=== PATIENT | female | born 1990 | race Caucasian/White ===

== ENCOUNTER 2021-05-05 17:20 | Emergency (ER) | payer BC, SELFPAY ==
--- NOTE | ~2021-05-05 | XR_ITS ---
XR foot RT min 3V DATE: 05/05/2021 17:41 INDICATION: Right first metatarsophalangeal area pain for 3 days. No injury. TECHNIQUE: 4 views COMPARISON: None FINDINGS: There is mild osteoarthritis at the first metatarsophalangeal joint. Mild plantar calcaneal enthesopathy, without erosive change or periostitis. No fracture or dislocation, periosteal reaction or bone destruction. IMPRESSION: Mild osteoarthritis at first metatarsophalangeal joint Mild plantar calcaneal enthesopathy Reviewed, dictated and finalized at location [facility] [employer]
--- NOTE | 2021-05-05 17:27 | ED.LOWEXIN ---
HPI - Extremity Injury (Lower) General Chief Complaint: Extremity Injury, Lower Stated Complaint: Foot pain Time Seen by Provider: 05/05/21 17:30 Source: patient and RN notes reviewed Mode of arrival: ambulatory Limitations: no limitations History of Present Illness HPI Narrative: 31-year-old female presents to the [facility] with complaints of right great toe pain on the plantar aspect for 2 days. Yesterday was resting it. Denies any injuries. Swelling and tenderness noted at the MTP joint. No redness, signs of infection or bruising noted MD complaint: foot injury Related Data Allergies Allergy/AdvReac Type Severity Reaction Status Date / Time No Known Allergies Allergy Verified 05/05/21 17:30 Review of Systems Review of Systems: All systems reviewed & are unremarkable except as noted in HPI and below Constitutional: Constitutional: Reports no additional constitutional complaints, Denies chills and Denies fever(s) Eyes: Eyes: Reports no additional eye complaints ENT: Reports system reviewed and no additional complaints, except as documented Cardiovascular: Cardiovascular: Reports no additional cardiovascular complaints and Denies chest pain Respiratory: Respiratory: Reports no additional respiratory complaints, Denies cough and Denies dyspnea Gastrointestinal: Gastrointestinal: Reports no additional gastrointestinal complaints, Denies abdominal pain, Denies nausea and Denies vomiting Musculoskeletal: Musculoskeletal: Reports as per HPI, Reports arthralgias (Feeling right great toe) and Reports joint swelling (Right great toe base) Integumentary/Breasts: Skin/Breast: Reports system reviewed and no additional complaints, except as docu Neurologic: Reports system reviewed and no additional complaints, except as documented Psychiatric: Psychiatric: Reports no additional psychiatric complaints Allergic/Immunologic: Allergic/Immunologic: Reports no additional allergic/immunologic complaints PMFSH Past Medical History Medical History No significant medical problems Surgical History Surgical History (Updated 05/06/21 @ 09:47 by Mariposa Archer) No significant past surgical history Comments At the time of my signature, I reviewed and agree with the nursing past medical, surgical, social, and family history. There is no relevant family history pertinent to the patient complaint. Exam Const: General: healthy appearing, no acute distress and alert Nutritional Appearance: well nourished Orientation/consciousness: patient oriented x3 Limitations: no limitations HENMT: Head: normal to inspection Ears: external ears normal Eyes: Pupils: Equal, round and reactive pupils present Neck: Neck: normal visual inspection, no lymphadenopathy and no meningeal signs Chest: Chest palpation & inspection: normal inspection of the chest Resp: Effort & Inspection: normal respiratory effort Auscultation: clear to auscultation bilaterally Cardio: Rate: regular rate Rhythm: regular rhythm Back/Spine/Pelvis: Back: no CVA tenderness Skin: General skin exam: normal color Rashes: no rashes Wounds: no wounds Neuro: General: patient oriented x3, moves all extremities, no meningeal signs and no focal motor deficits Cranial nerves: Yes Equal, round and reactive pupils present Speech: normal speech Gait exam (Neuro): Normal gait present Extrem: General: capillary refill normal and normal exam except as noted Right lower extremity: foot Details: normal capillary refill, tenderness Location: of the plantar foot and of the great toe and abnormal ROM of toe Details: pain with active ROM Location: of the great toe and pain with passive ROM Location: of the great toe Ankle/foot/toe images: 1. Swelling and tenderness on palpation and with walking noted. No bruising or signs of infection. Psych: Appearance: grossly normal and well kempt Mental Status: mental status grossly nor
[2021-05-05 17:29] VITALS: BP 143/76; PULSE 94; RESP 16; TEMP 36.9; O2SAT 99
== END 2021-05-05 18:10 | disposition home or self-care (01) ==
PROVIDERS: Emergency Provider Nurse Practitioner; PCP Nurse Practitioner Family
DX: M19.071 Primary osteoarthritis, right ankle and foot (principal)
CPT/HCPCS: 73630; 99203; G0463

== ENCOUNTER 2021-08-19 11:48 | Emergency (ER) | payer BC, SELFPAY ==
[2021-08-19 11:55] VITALS: BP 133/86; PULSE 97; RESP 16; TEMP 36.6; O2SAT 100
--- NOTE | 2021-08-19 11:56 | ED.EAR ---
HPI - Ear Problem General Chief complaint: Ear Stated complaint: PAIN/SWELLING BEHIND EAR/EAR CLOGGED Time Seen by Provider: 08/19/21 11:56 Source: patient Mode of arrival: ambulatory Limitations: no limitations History of Present Illness HPI Narrative: 31-year-old female presented for complaint of left ear pain and swelling for 4 days. She states the pain is worse behind the ear and wraps to the cheekbone. Pain is worse when turning head to the left. States it feels like the sensation of 'mouth watering.' Rates pain 2/10 at rest. She states that pain and swelling improved yesterday after taking ibuprofen but returned again today. She denies pain with chewing, sinus pressure congestion, tinnitus or dizziness, decreased hearing, fevers or chills. MD Complaint: ear pain Related Data Allergies Allergy/AdvReac Type Severity Reaction Status Date / Time No Known Allergies Allergy Verified 05/05/21 17:30 Review of Systems Review of Systems: CONSTITUTIONAL: Denies malaise, chills, or fever. EYES: Denies visual changes, redness, or discharge. ENT: Denies rhinorrhea, congestion, sinus pain, and sore throat. Reports ear pain CARDIOVASCULAR: Denies chest pain, palpitations, or edema. RESPIRATORY: Denies cough or dyspnea. GASTROINTESTINAL: Denies abdominal pain, nausea, vomiting, diarrhea SKIN: Denies rash or itching. MUSCULOSKELETAL: Denies myalgia. NEUROLOGIC: Denies headache. All systems reviewed & are unremarkable except as noted in HPI and below PMFSH Past Medical History Medical History No significant medical problems Surgical History Surgical History No significant past surgical history Comments At time of signature, agree with nursing past medical, surgical, social and family history. There is no relevant family history pertinent to the presenting complaint Exam Narrative: GENERAL: Well-appearing HEAD: Normocephalic EYES: conjunctivae clear ENT: Nares clear. Mucous membranes moist. Left parotid mild swelling and tenderness with light palpation, no erythema. TMs pearly ventura with normal light reflex and normal canals bilaterally; no tragal tenderness. Oropharynx not erythematous without lesions. Tonsils absent, no drooling, no hoarseness, no trismus, uvula midline. No signs of dental abscess or gum swelling. NECK: Supple. CHEST: Clear to auscultation, breath sounds equal. No wheezing, rhonchi, rales, or stridor. HEART: Regular rate and rhythm. No murmur heard. SKIN: Warm, dry, no rash. NEURO: Alert and oriented x3. PSYCH: Normal mood and affect Course Course Emergency Course: Patient is aware of diagnosis, understands and agrees to treatment plan. Anticipatory guidance given. Patient agrees to follow-up as directed and is aware of reasons to seek care at the emergency department. Portions of this record may have been created with voice recognition software Level of Care: Express Care Visit Vital Signs Vital signs: Reviewed Medical Decision Making MDM Narrative Medical decision making narrative: Exam findings c/w sialoadenitis. She is advised on supportive care and the abx is provided should sx worsen significantly before she can be seen by PCP. States she could not get in to see them for one month. patient is non-toxic appearing and is in no distress. Patient is appropriate for outpatient treatment and follow-up. Differential Diagnosis Differential Diagnosis: sinusitis, rhinosinusitis, nasopharyngitis, viral pharyngitis, otitis media, otitis externa, eustachian tube dysfunction, foreign body, cerumen impaction, parotiditis, sialoadenitis. Discharge Plan Discharge Clinical Impression: Acute sialoadenitis Patient Disposition: Home, Self-Care Condition: Stable Instructions: Antibiotic Form, Sialoadenitis (ED) Additional Instructions: keep well hydrated, apply moist heat to the involved area, m
== END 2021-08-19 12:17 | disposition home or self-care (01) ==
PROVIDERS: Emergency Provider Nurse Practitioner Family; PCP Nurse Practitioner Family
DX: K11.21 Acute sialoadenitis (principal)
CPT/HCPCS: 99213; G0463

== ENCOUNTER 2021-11-23 07:22 | Outpatient (CLI) | payer BC, SELFPAY ==
[2021-11-23 07:57] LABS: Hematocrit 41.9 % (37.0-47.0); Hemoglobin 13.4 g/dL (12.0-15.0); Mean Corpuscular Hemoglobin 28.6 pg (26-34); Mean Corpuscular Volume 89.3 fl (80-100); Platelet Count Result 269 k/mm3 (150-375); Red Blood Count 4.69 M/mm3 (4.2-5.4); Red Cell Distribution Width 12.8 % (11.5-14.5); White Blood Count 7.6 K/mm3 (4.5-10.0)
[2021-11-23 08:14] LABS: CRP < 0.5 mg/dL (<1.0)
[2021-11-23 08:43] LABS: Erythrocyte Sedimentation Rate 11 mm/hr (0-20)
[2021-11-30 09:45] LABS: HLA B27 Negative (Negative)
== END 2021-11-23 07:23 | disposition home or self-care (01) ==
LOC: ANHLAB 07:24
PROVIDERS: PCP Nurse Practitioner Family; Visit Provider Nurse Practitioner
DX: K52.9 Noninfective gastroenteritis and colitis, unspecified (principal); R93.3 Abnormal findings on diagnostic imaging of other parts of digestive tract; M46.1 Sacroiliitis, not elsewhere classified
CPT/HCPCS: 36415; 85027; 85652; 86140; 86812